=== PATIENT | male | born 1980 | race Caucasian/White ===

== ENCOUNTER 2023-09-24 15:43 | Outpatient (AMB) | payer OTHER, SELFPAY ==
[2023-09-24 15:45] VITALS: BP 138/84; PULSE 74; O2SAT 98; BMI 26.5
--- NOTE | 2023-09-24 15:45 | A.OFFPC_ITS ---
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 Will order labs. Due for colon screen, will refer to GI. Pt's PHQ-9 was positive. He is interested in seeing a therapist, will have team reach out to pt. Denies any SI and HI. PFSH Family History Other Mental health problem Substance abuse Social History Patient Tobacco Use Status: Current everyday Tobacco user Cigarettes Per Day: 5 Current occupational status: employed Cognitive needs: No Hearing needs: No Vision needs: No Questionnaire PHQ-9 Over the last 2 weeks, how often have you been bothered by any of the following problems? 1. Little interest or pleasure in doing things: more than half the days 2. Feeling down, depressed, or hopeless: several days 3. Trouble falling or staying asleep, or sleeping too much: several days 4. Feeling tired or having little energy: nearly every day 5. Poor appetite or overeating: more than half the days 6. Feeling bad about yourself - or that you are a failure or have let yourself or your family down: not at all 7. Trouble concentrating on things, such as reading the newspaper or watching television: not at all 8. Moving or speaking so slowly that other people could have noticed. Or the opposite - being so fidgety or restless that you have been moving around a lot more than usual: several days 9. Thoughts that you would be better off or of hurting yourself in some way : not at all Total score: 10 Depression Screening Interpretation: Positive (will have fredi contact the pt, denies any si or hi) Depression Screening Done: Yes 00636 - PHQ-9 Billing: Yes Source: Developed by Drs. Kavon Buck, Amparo Lopez, Sourav Mead and colleagues, with an educational heriberto from [employer]. Thrive Questionnaire Date Thrive assessed: 09/24/23 I am a: Patient What is your living situation today?: I have a steady place to live Within the past 12 months, did the food you bought not last and you didn't have the money to get more?: Never true Within the past 12 months, did you worry whether your food would run out before you got money to buy more?: Never true Do you have trouble paying for medicines?: No Do you have trouble getting transportation to medical appointments?: No Do you have trouble paying your heating and electricity bill?: No Do you have trouble taking care of your child, family member or friend?: No Do you have trouble with day-to-day activities such as bathing, preparing meals, shopping, managing finances, etc.?: No Are you currently unemployed and looking for a job?: No Are you interested in more education?: No Please select the resources that you would like help with: None Currently or been in a relationship where the following occur: no concerns reported THRIVE Score: 0 AUDIT C Alcohol Use Questionnaire (AUDIT-C) 1. How often do you have a drink containing alcohol?: Never Total Score: 0 BRANDON-7 AMB Questionnaire BRANDON-7 Date BRANDON - 7 assessed: 09/24/23 Feeling nervous, anxious, or on edge: 0 = Not at all Not being able to stop or control worryin = Not at all Worrying too much about different things: 0 = Not at all Trouble relaxin = Not at all Being so restless that it is hard to sit still: 0 = Not at all Becoming easily annoyed or irritable: 0 = Not at all Feeling afraid as if something awful might happen: 0 = Not at all Total BRANDON-7 score (0-4 normal; 5-9 mild; 10-14 moderate; 15-21 severe): 0 Source: Developed by Drs. Kavon Buck, Amparo Lopez, Sourav Mead and colleagues, with an educational heriberto from [employer]. BRANDON-7 Assessment Billing BRANDON-7 Assessment Tool: BRANDON-7 Assessment 24839 (denies any si or hi, ferdi() will reach out) Review of Systems Const Denies chills and Denies fever(s) Eyes Denies blurry vision ENT Denies vertigo, Denies dizziness and Denies sore throat Card Denies chest pain at rest, Denies chest pain with activity, Denies diaphoresis, Denies dyspnea and Denies dyspnea on exertion Resp Denies cough, Denies dyspnea, Denies dyspnea on exertion and Denies wheezing GI Denies abdominal pain, Denies melena, Denies hematochezia, Denies constipation, Denies diarrhea and Denies loose stools Denies hematuria Musc Denies numbness and Denies tingling Skin/Breast Denies lesions Neuro Denies vertigo, Denies dizziness, Denies numbness and Denies tingling Psych Denies anxiety, Denies depression, Denies homicidal ideation, Denies suicidal ideation and Denies other (substance abuse) Aller/Immun Denies wheezing Physical exam (Primary Care) Vital Signs: Last Vital Signs Pulse 74 09/24/23 15:45 BP 138/84 09/24/23 15:45 Pulse Ox 98 09/24/23 15:45 Oxygen Delivery Method Room Air 09/24/23 15:45 BMI result Body Mass Index 26.5 Tobacco/Smoking Status: Tobacco use Status Tobacco use date assessed 09/24/23 09/24/23 15:47 Patient Tobacco Use Status Current everyday Tobacco 09/24/23 16:14 PHQ-9: PHQ-9 Score PHQ-9: Total score 10 09/24/23 16:36 Depression Screening Interpretation: Positive (will have fredi contact the pt, denies any si or hi) Thrive Assessment: Date of Thrive Assessment Date Thrive assessed 09/24/23 09/24/23 15:47 Currently or been in a relationship where the following occur: no concerns reported Const General: cooperative Nutritional Appearance: well nourished Orientation/consciousness: patient oriented x3 HENMT Head: Yes normal to inspection, Yes normocephalic and Yes atraumatic Ears: TM's normal bilaterally Eyes General: appearance normal, both eyes and all related structures Alignment and Position: alignment normal and position normal Neck Neck: Yes normal visual inspection and Yes no lymphadenopathy Thyroid: Thyroid normal Resp Effort & Inspection: normal respiratory effort Auscultation: clear to auscultation bilaterally Cardio Rate: regular rate Rhythm: regular rhythm Heart sounds: S1 normal heart sound present, S2 normal heart sound present and no murmurs GI Palpation (GI): Soft to palpation and nontender Auscultation: normal bowel sounds Male General Exam: Yes normal external exam Penis: normal penis Scrotum: scrotum normal, testes descended bilaterally and no inguinal hernias Testes: no testicular mass Skin Other: left forehead with slightly fluctuant lesion, ? cystic vs lipoma Rashes: no rashes Neuro General: patient oriented x3, moves all extremities, no focal motor deficits and deep tendon reflexes 2+ bilaterally Romberg Test: Negative Psych Appearance: grossly normal Mental Status: mental status grossly normal Speech and movement: Normal speech and movement present Affect: normal affect Attitude: cooperative Thought process: Normal thought process present Thought content: Normal thought content present Insight: Good insight present (Psych) Judgement: Good judgement present (Psych) Assessment and Plan Assessment & Plan (1) Physical exam: Code(s): Z00.00 - Encounter for general adult medical examination without abnormal findings (2) Screening for colon cancer: Code(s): Z12.11 - Encounter for screening for malignant neoplasm of colon (3) Screening for prostate cancer: Code(s): Z12.5 - Encounter for screening for malignant neoplasm of prostate Plan The patient agreed to the use of a emergency medical technician for this encounter. Scribed for RUPA Garcia-BC by Lisa Lorenzo emergency medical technician, on 09/24/2023 at 16:25 EST. Orders: Orders UA CC w/rflx Micro + Cult Today Z00.00 - Encounter for general adult medical examination without abnormal findings Lipid Panel Today Z00.00 - Encounter for general adult medical examination without abnormal findings Complete Blood Count Auto Diff Today Z00.00 - Encounter for general adult medical examination without abnormal findings Comprehensive [place]. Panel Fast Today Z00.00 - Encounter for general adult medical examination without abnormal findings TSH reflex Free T4 Today Z00.00 - Encounter for general adult medical examination without abnormal findings Prostate Specific Antigen Scr Today Z12.5 - Encounter for screening for malignant neoplasm of prostate Referrals Gastroenterology Referral Z12.11 - Encounter for screening for malignant neoplasm of colon Coding Level of Care Code New Pt Prev Care 40-64y(78167) Diagnoses Physical exam Z00.00 Screening for colon cancer Z12.11 Screening for prostate cancer Z12.5 Additional Codes BRANDON-7 Assessment Billing - BRANDON-7 Assessment Tool: BRANDON-7 Assessment 10812 ([id number])
== END 2023-09-24 16:46 | disposition home or self-care (01) ==
PROVIDERS: PCP Nurse Practitioner Family; Visit Provider Nurse Practitioner Family
DX: Z00.00 Encounter for general adult medical examination without abnormal findings (principal); Z12.11 Encounter for screening for malignant neoplasm of colon; Z12.5 Encounter for screening for malignant neoplasm of prostate
CPT/HCPCS: 99386

== ENCOUNTER → 2024-08-05 11:19 | Outpatient (BNVA) | payer OTHER, SELFPAY | PROVIDERS: PCP Nurse Practitioner Family; Visit Provider Nurse Practitioner Family | DX: Z13.89 Encounter for screening for other disorder (principal) ==

== ENCOUNTER 2024-09-22 11:53 | Outpatient (REF) | payer OTHER, SELFPAY ==
[2024-09-22 13:29] LABS: MANUAL DIFF FLAG NO
[2024-09-22 13:34] LABS: Basophils Percent Auto 0.3 % (0-2); Eosinophils Absolute Auto 0.1 X10*3/uL (0.0-0.4); Eosinophils Percent Auto 0.3 % (0-4); Hematocrit 50.5 % (42.0-52.0); Imm Gran Abs Auto 0.06 X10*3/uL (0.00-0.03); Imm Gran Pct Auto 0.4 % (0.0-0.4); Lymphocytes Percent Auto 13.7 % (20-40); Mean Corpuscular HGB Conc 33.7 g/dl (31.0-36.0); Mean Corpuscular Hemoglobin 30.2 pg (27.0-33.0); Mean Corpuscular Volume 89.9 fL (80.0-98.0); Mean Platelet Volume 8.8 fL (9.4-12.4); Monocytes Absolute Auto 0.7 X10*3/uL (0.1-1.2); Monocytes Percent Auto 5.1 % (2-11); Neutrophils Absolute Auto 11.5 x10*3/uL (2.0-8.3); Neutrophils Percent Auto 80.2 % (45-73); Platelet Count 390 X10*3/uL (160-400); Red Blood Count 5.62 X10*6/uL (4.60-5.80); Red Cell Distribution Width 12.3 % (11.0-16.0); White Blood Count 14.4 X10*3/uL (4.8-10.8)
[2024-09-22 14:08] LABS: Appearance Urine Clear; Color Urine Dark Yellow; Glucose Urine UA Negative (Negative); Leukocyte Esterase Urine Negative (Negative); Nitrite Urine Negative (Negative); PH 5.5 (5.0-9.0); Specific Gravity - Urine >= 1.030 (1.005-1.025); Urine Blood Negative (Negative); Urine Ketones 15 mg/dL (Negative); Urine Protein Trace mg/dL (Neg-Trace)
[2024-09-22 14:15] LABS: Prostate Specific Antigen Scr 0.53 ng/mL (<0.05-4.0)
[2024-09-22 14:19] LABS: Alanine Aminotransferase 29 U/L (0-40); Albumin Level 4.7 g/dL (3.5-5.0); Alkaline Phosphatase 46 U/L (39-117); Anion Gap 15 (12-20); Aspartate Amino Transferase 26 U/L (5-37); Bilirubin Total 0.4 mg/dL (0.0-1.0); Blood Urea Nitrogen 14 mg/dL (9-16); Calcium 9.4 mg/dL (8.4-10.2); Carbon Dioxide 27 mmol/L (22-29); Chloride 102 mmol/L (96-108); Cholesterol 261 mg/dL (<200); Estimated Glomerular Filt Rate > 60; Glucose Fasting 111 mg/dL (60-99); HDL Cholesterol 49 mg/dL (>40); LDL Cholesterol Calculated 180 mg/dL (<100); Potassium 3.9 mmol/L (3.3-5.1); Sodium 140 mmol/L (135-145); TSH reflex Free T4 1.73 uIU/mL (0.32-4.0); Total Protein 7.9 g/dL (6.5-8.0); Triglycerides 160 mg/dL (<150)
== END 2024-09-22 11:54 | disposition home or self-care (01) ==
LOC: HO.HMGCLDS 11:53
PROVIDERS: PCP Nurse Practitioner Family; Visit Provider Nurse Practitioner Family
DX: Z00.00 Encounter for general adult medical examination without abnormal findings (principal); Z12.5 Encounter for screening for malignant neoplasm of prostate
CPT/HCPCS: 36415; 80053; 80061; 81003; 84153; 84443; 85025

== ENCOUNTER 2024-10-26 14:52 | Outpatient (AMB) | payer OTHER, SELFPAY ==
[2024-10-26 14:56] VITALS: BP 110/74; PULSE 70; TEMP 36.7; O2SAT 98; BMI 27.7
--- NOTE | 2024-10-26 14:56 | MHC.PC.OV ---
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 Allergies No Known Allergies Allergy (Verified 10/26/24 15:14) Medication List - Last Reconciled 10/26/24 by RUPA Jamison- atorvastatin 20 mg PO BEDTIME escitalopram oxalate 10 mg PO DAILY methadone 130 mg PO DAILY Tobacco use date assessed: 10/26/24 Dental Screening Dental Screen Date: 10/26/24 Did you have a dental visit in the last 12 months?: Yes Did you have a dental problem in the last 6 months where you did not have access to dental care?: No Was dental information given to patient?: Patient has dentist HPI PE HPI Details History of Present Illness The patient is a 44-year-old male presenting with concerns of chest pain, dyspnea, fever, and abdominal pain. He reports experiencing chest pain and shortness of breath, accompanied by fever and chills. Additionally, he has been experiencing abdominal pain, constipation, and diarrhea. The patient also reports lesions on his back, which have been identified as herpes zoster (shingles). The lesions are vesicular and located on the left thoracic back, extending to the mid axillary area, with some scabbing noted. He was previously referred for a colonoscopy last year and will be re-referred for colon cancer screening. Health Maintenance - Colon cancer screening referral for colonoscopy Social History Review of Systems - Cardiovascular: Reports chest pain - Respiratory: Reports dyspnea - General: Reports fever and chills - Gastrointestinal: Reports abdominal pain, constipation, and diarrhea Physical Exam General: Cooperative, healthy appearing, comfortable, no acute distress and well developed Orientation: Patient oriented x3 Limitations: No limitations Head: Normal to inspection Ears: Hearing grossly normal bilaterally Nose: Normal external nose present Face and sinus: Normal facial exam Eyes: Appearance normal, both eyes and all related structures Neck: Normal visual inspection and Yes full ROM Respiratory: Normal respiratory effort and able to speak in complete sentences. Clear to auscultation bilaterally Cardiovascular: Regular rate and rhythm. Normal S1 and S2 GI: Normal to inspection. Soft to palpation and nontender : testicles without masses/lesions and no hernias appreciated Skin: Vesicular lesions noted on the left thoracic back, mid back, and to the mid axillary area along same dermatome. Some scabbing on the thoracic back region patch. cystic lesion to left forehead Neuro: Patient oriented x3 Extremities: Normal to inspection Results Plan The patient will be re-referred for a colonoscopy to screen for colon cancer, as he was previously referred last year but has not yet undergone the procedure. The vesicular lesions on the patient's back, identified as herpes zoster, will be monitored, and appropriate antiviral treatment may be considered if symptoms persist or worsen. Patient was informed and verbally consented to the use of an ambient scribe for clinic note documentation during this visit. Discussion Notes I discussed with the patient the importance of undergoing a colonoscopy for colon cancer screening, given his previous referral. We also reviewed the presentation of his shingles and the potential need for antiviral therapy if the condition does not improve. Patient Instructions - Schedule a colonoscopy for colon cancer screening. - Monitor the lesions on your back and seek medical attention if they worsen. [facility] Surgical History No pertinent past surgical history Family History Other Mental health problem Substance abuse Social History Patient Tobacco Use Status: Current everyday Tobacco user Cigarettes Per Day: 5 Current occupational status: employed Cognitive needs: No Hearing needs: No Vision needs: No Questionnaire PHQ-9 Over the last 2 weeks, how often have you been bothered by any of the following problems? 1. Little interest or pleasure in doing things: more than half the days 2. Feeling down, depressed, or hopeless: several days 3. Trouble falling or staying asleep, or sleeping too much: several days 4. Feeling tired or having little energy: nearly every day 5. Poor appetite or overeating: more than half the days 6. Feeling bad about yourself - or that you are a failure or have let yourself or your family down: not at all 7. Trouble concentrating on things, such as reading the newspaper or watching television: not at all 8. Moving or speaking so slowly that other people could have noticed. Or the opposite - being so fidgety or restless that you have been moving around a lot more than usual: several days 9. Thoughts that you would be better off or of hurting yourself in some way: not at all Total score: 10 Depression Screening Interpretation: Positive ( denies any si or hi, has a therapist) Depression Screening Follow-up: Existing condition Depression Screening Done: Yes 35807 - PHQ-9 Billing: Yes Source: Developed by Drs. Kavon Buck, Amparo Lopez, Sourav Mead and colleagues, with an educational heriberto from [employer]. Thrive Questionnaire Date Thrive assessed: 10/26/24 I am a: Patient What is your living situation today?: I have a steady place to live Within the past 12 months, did the food you bought not last and you didn't have the money to get more?: I choose not to answer this question Within the past 12 months, did you worry whether your food would run out before you got money to buy more?: I choose not to answer this question Do you have trouble paying for medicines?: I choose not to answer this question Do you have trouble getting transportation to medical appointments?: No Do you have trouble paying your heating and electricity bill?: No Do you have trouble taking care of your child, family member or friend?: No Do you have trouble with day-to-day activities such as bathing, preparing meals, shopping, managing finances, etc.?: No Are you currently unemployed and looking for a job?: No Are you interested in more education?: No Please select the resources that you would like help with: None Currently or been in a relationship where the following occur: I choose not to answer THRIVE Score: 0 AUDIT C Alcohol Use Questionnaire (AUDIT-C) 1. How often do you have a drink containing alcohol?: Never 3. How often do you have six or more drinks on one occasion?: Never Total Score: 0 Score Reviewed/Action Taken: Yes BRANDON-7 AMB Questionnaire BRANDON-7 Date BRANDON - 7 assessed: 10/26/24 Feeling nervous, anxious, or on edge: 0 = Not at all Not being able to stop or control worryin = Not at all Worrying too much about different things: 0 = Not at all Trouble relaxin = Not at all Being so restless that it is hard to sit still: 0 = Not at all Becoming easily annoyed or irritable: 0 = Not at all Feeling afraid as if something awful might happen: 0 = Not at all Total BRANDON-7 score (0-4 normal; 5-9 mild; 10-14 moderate; 15-21 severe): 0 Source: Developed by Drs. Kavon Buck, Amparo Lopez, Sourav Mead and colleagues, with an educational heriberto from [employer]. BRANDON-7 Assessment Billing BRANDON-7 Assessment Tool: BRANDON-7 Assessment 98629 (denies any si or hi, fredi() will reach out) Physical exam (Primary Care) Vital Signs: Last Vital Signs Temp 98.0 F 10/26/24 14:56 Pulse 70 10/26/24 14:56 BP 110/74 10/26/24 14:56 Pulse Ox 98 10/26/24 14:56 BMI result Body Mass Index 27.7 Tobacco/Smoking Status: Tobacco use Status Tobacco use date assessed 10/26/24 10/26/24 14:59 Patient Tobacco Use Status Current everyday Tobacco 10/26/24 14:59 PHQ-9: PHQ-9 Score PHQ-9: Total score 10 10/26/24 14:59 Depression Screening Interpretation: Positive ( denies any si or hi, has a therapist) Depression Screening Follow-up: Existing condition Thrive Assessment: Date of Thrive Assessment Date Thrive assessed 10/26/24 10/26/24 14:59 Currently or been in a relationship where the following occur: I choose not to answer Coding Level of Care Code Est Pt Level 3 (98121) Est Pt Prev Care 40-64y(42806) Diagnoses Physical exam Z00.00 Screening for colon cancer Z12.11 Shingles B02.9 Additional Codes BRANDON-7 Assessment Billing - BRANDON-7 Assessment Tool: BRANDON-7 Assessment 68792 ([id number]) PHQ-9 - 94617 - PHQ-9 Billing: Yes ([id number]) Assessment & Plan Assessment & Plan (1) Physical exam: Code(s): Z00.00 - Encounter for general adult medical examination without abnormal findings Category: Medical (2) Screening for colon cancer: Code(s): Z12.11 - Encounter for screening for malignant neoplasm of colon Category: Medical (3) Shingles: Code(s): B02.9 - Zoster without complications Category: Medical Plan . Orders: Orders UA CC w/rflx Micro + Cult Today Z00.00 - Encounter for general adult medical examination without abnormal findings Lipid Panel Today Z00.00 - Encounter for general adult medical examination without abnormal findings Complete Blood Count Auto Diff Today Z00.00 - Encounter for general adult medical examination without abnormal findings Comprehensive [place]. Panel Fast Today Z00.00 - Encounter for general adult medical examination without abnormal findings TSH reflex Free T4 Today Z00.00 - Encounter for general adult medical examination without abnormal findings Prostate Specific Antigen Scr Today B02.9 - Zoster without complications, Z00.00 - Encounter for general adult medical examination without abnormal findings Referrals Gastroenterology Referral Z12.11 - Encounter for screening for malignant neoplasm of colon Medications: New valacyclovir 1,000 mg PO Q8H 21 tabs 0RF 7 days prednisone 50 mg PO DAILY 6 tabs 0RF 6 days
== END 2024-10-26 15:22 | disposition home or self-care (01) ==
LOC: HO.HMCC 14:52
PROVIDERS: PCP Nurse Practitioner Family; Visit Provider Nurse Practitioner Family
DX: Z00.00 Encounter for general adult medical examination without abnormal findings (principal); B02.9 Zoster without complications; Z12.11 Encounter for screening for malignant neoplasm of colon

== ENCOUNTER → 2024-10-26 14:52 | Outpatient (BNVA) | payer OTHER, SELFPAY | PROVIDERS: PCP Nurse Practitioner Family; Visit Provider Nurse Practitioner Family | DX: Z00.00 Encounter for general adult medical examination without abnormal findings (principal); B02.9 Zoster without complications; R07.9 Chest pain, unspecified; R10.9 Unspecified abdominal pain; R06.00 Dyspnea, unspecified | CPT/HCPCS: 96127; 99212; 99396 ==

== ENCOUNTER 2025-02-03 12:08 | Outpatient (AMB) | payer OTHER, SELFPAY ==
[2025-02-03 12:12] VITALS: BP 128/84; PULSE 94; O2SAT 96; BMI 26.9
--- NOTE | 2025-02-03 12:12 | MHC.OFFVIS ---
Vital Signs 02/03/25 12:12 Height 6 ft 1 in Weight 204 lb BMI 26.9 BP 128/84 Blood Pressure Location Lt brachial Position Sitting Pulse 94 Pulse Source Pulse Oximeter Pulse Oximetry (%) 96 Oxygen Delivery Method Room Air Intake Visit Reasons: [place] screening Intake Note: Patient new consult for pre Colonoscopy screening. Patient cc: Pt denies any GI sx or concerns at this time. No pertinent surgical or FMHx. Concrete Vault [employer] Required: No Accompanied by: Self / Same As Patient Allergies No Known Allergies Allergy (Verified 02/03/25 12:13) Medication List - Last Reconciled 02/03/25 by Amy Carpenter CNP atorvastatin 20 mg PO BEDTIME escitalopram oxalate 10 mg PO DAILY methadone 130 mg PO DAILY HPI HPI [place] screening: Details: Patient is a 45-year-old male with PMH of hypertension, depression and substance use disorder. Referred by PCP for pre colonoscopy screening. Mehran reports daily bowel movements without current constipation?previous opioid-induced constipation managed successfully with dietary modifications. Appetite remains good, with a weight reduction of six pounds since October attributed to increased physical activity and dietary changes. Reports episodic mild indigestion and mild dysphagia to solids at the start of meals, ongoing for the past two months without progression. Occasional nausea and rare vomiting (annual), felt to be related to medication use or isolated illness, without persistent pattern. No heartburn. Relevant comorbidities include hyperlipidemia, anxiety/depression (on atorvastatin, escitalopram), and opioid dependence managed with methadone, which previously contributed to constipation. History of treated shingles (valacyclovir, now resolved). No concerning family or personal history of GI malignancy. Patient denies: fever/chills, n/v, appetite changes, pyrosis, regurgitation, unintentional wt loss, ab pain or melena/hematochezia. Social hx: -denies ETOH use -Daily marijuana (edibles, with medical card), history of IV heroin and prescription opioid use (now on methadone). Denies other recreational drug use -Former heavy smoker, currently 5-6 cigarettes/day, actively reducing. - family hx as below -denies personal hx of CA -denies significant cardiopulmonary history -tolerated anesthesia in the past without difficulty. PFSH Medical History (Updated 02/03/25 @ 13:07 by Amy Carpenter CNP) Constipation Dysphagia Surgical History No pertinent past surgical history Family History Other Mental health problem Substance abuse Social History Patient Tobacco Use Status: Current everyday Tobacco user Cigarettes Per Day: 5 Current occupational status: employed Cognitive needs: No Hearing needs: No Vision needs: No Review of Systems Const Reports as per HPI ENT Reports as per HPI Card Reports as per HPI Resp Reports as per HPI GI Reports as per HPI Reports as per HPI Physical Exam Vital Signs: Last Vital Signs Pulse 94 02/03/25 12:12 BP 128/84 02/03/25 12:12 Pulse Ox 96 02/03/25 12:12 Oxygen Delivery Method Room Air 02/03/25 12:12 BMI result Body Mass Index 26.9 Const General: healthy appearing, no acute distress and well developed Nutritional Appearance: average body habitus Orientation/consciousness: patient oriented x3 HEENT Head: Yes normal to inspection, Yes normocephalic and Yes atraumatic Face and sinus: Yes normal facial exam Eyes General: appearance normal, both eyes and all related structures Neck Neck: Yes normal visual inspection Resp Effort & Inspection: normal respiratory effort, able to speak in complete sentences, no tracheal deviation and symmetric chest movement Cardio Jugular venous distension: no JVD GI Auscultation: normal bowel sounds Neuro General: patient oriented x3 Gait exam (Neuro): Normal gait present Psych Appearance: grossly normal Mental Status: mental status grossly normal Speech and movement: Normal speech and movement present Affect: normal affect Attitude: cooperative Thought process: Normal thought process present Thought content: Normal thought content present Insight: Good insight present (Psych) Judgement: Good judgement present (Psych) Assessment & Plan Assessment & Plan (1) Screening for colon cancer: Code(s): Z12.11 - Encounter for screening for malignant neoplasm of colon Category: Medical Plan: First screening colonoscopy, no red flag symptoms. Medications: -prescriptions for laxative tablets and MiraLax sent to pharmacy; instructions for Gatorade purchase and clear liquid diet given. Patient educated on scheduling process, procedure preparation, including avoiding certain foods and ensuring clear liquid intake Advised on necessity for ride post-procedure due to sedation. (2) Dysphagia: Code(s): R13.10 - Dysphagia, unspecified Category: Medical Qualifiers: Dysphagia type: unspecified Qualified Code(s): R13.10 - Dysphagia, unspecified Plan: Mild symptoms, non-progressive, no alarm symptoms. However, given new onset and prior opioid use recommend completing EGD. Additional Testing: -EGD to complete concurrent at time of colonoscopy. Portal message sent with recommendation. Medication Management: None at present. Lifestyle Recommendations: Monitor symptoms, avoid triggers; report if worsens. Follow-Up: As needed. (3) Constipation: Code(s): K59.00 - Constipation, unspecified Category: Medical Qualifiers: Constipation type: drug induced constipation Qualified Code(s): K59.03 - Drug induced constipation Plan: Historical based on methadone use, resolved with diet; future risk persists. Additional Testing: None unless symptoms recur. Medication Management: PRN osmotic laxatives (e.g., Miralax) if constipation returns. Lifestyle Recommendations: Continue high-fiber diet, hydration, physical activity. Follow-Up: PRN for recurrence. Plan Follow-up after endoscopy as warranted or sooner if needed Time: I spent a total of 20 minutes on the date of encounter which includes: Preparing to see the patient (reviewed previous documentation, test results and medical history) Performing a medically appropriate exam and/or evaluation Ordering medications, tests, and procedures Documenting clinical information in the health record Orders: Referrals GI Procedure Notification R13.10 - Dysphagia, unspecified, Z12.11 - Encounter for screening for malignant neoplasm of colon Medications: New bisacodyl Take per colonoscopy instructions 5 mg PO ONCE 4 tabs 0RF polyethylene glycol 3350 (Miralax) per colonoscopy prep instructions 238 grams PO ONCE 238 grams 0RF Coding Level of Care Code New Pt Est Pt Level 3 (12993) Patient Type New Diagnoses Screening for colon cancer Z12.11 Dysphagia, unspecified type R13.10 Dysphagia type: unspecified Drug-induced constipation K59.03 Constipation type: drug induced constipation
== END 2025-02-03 13:07 | disposition home or self-care (01) ==
LOC: HO.HGI 12:09
PROVIDERS: PCP Nurse Practitioner Family; Visit Provider Nurse Practitioner Family
DX: Z01.818 Encounter for other preprocedural examination (principal); Z12.11 Encounter for screening for malignant neoplasm of colon; R13.10 Dysphagia, unspecified; K59.03 Drug induced constipation
CPT/HCPCS: 99213

== ENCOUNTER → 2025-02-03 12:08 | Outpatient (BNVA) | payer OTHER, SELFPAY | PROVIDERS: PCP Nurse Practitioner Family; Visit Provider Nurse Practitioner Family | DX: Z12.11 Encounter for screening for malignant neoplasm of colon (principal); R13.10 Dysphagia, unspecified; K59.03 Drug induced constipation | CPT/HCPCS: 99212 ==

== ENCOUNTER 2025-04-14 08:28 | Day surgery (SDC) | payer OTHER, SELFPAY ==
--- NOTE | 2025-04-11 13:36 | HO.ANESPROP2 ---
Documented by User: Kitty Mary NP 04/11/25 13:37 HPI - Anesthesia Eval Consult details Narrative: 45 yr old male for upper endoscopy, colonoscopy H/O substance use: ?on methadone; no further info available [facility] Active Problems Active Problems: All Active Problems (Updated 02/03/25 @ 13:07 by Amy Carpenter CNP) Constipation (Acute) Dysphagia (Acute) Shingles (Acute) Leukocytosis (Acute) Dyslipidemia (Acute) Heroin use (Acute) Methadone use (Acute) Screening for prostate cancer (Acute) Screening for colon cancer (Acute) Physical exam (Acute) Past Medical History Medical History Constipation Dysphagia Family History Family History Other Mental health problem Substance abuse Surgical History Surgical History No pertinent past surgical history Social History Social History Patient Tobacco Use Status: Current everyday Tobacco user Tobacco use type: Cigarette Cigarette Packs Per Day: 0.5 Cigarettes Per Day: 10.0 Current occupational status: employed Cognitive needs: No Hearing needs: No Vision needs: No Meds Allergies Allergy/AdvReac Type Severity Reaction Status Date / Time No Known Allergies Allergy Verified 04/14/25 08:44 Home Medications ?Medication ?Instructions ?Recorded ?Confirmed ?Last Taken ?Type methadone 10 mg/mL oral concentrate 130 mg PO DAILY 09/24/23 02/03/25 Unknown History escitalopram oxalate 10 mg tablet 10 mg PO DAILY 10/26/24 04/12/25 Unknown History Documented by User: Ani St MD 04/14/25 09:39 [facility] Past Medical History Medical History Constipation Dysphagia Family History Family History Other Mental health problem Substance abuse Family history of problems with anesthesia: No Surgical History Surgical History No pertinent past surgical history History of Problems with Anesthesia: No Social History Social History Patient Tobacco Use Status: Current everyday Tobacco user Tobacco use type: Cigarette Cigarette Packs Per Day: 0.5 Cigarettes Per Day: 10.0 Current occupational status: employed Cognitive needs: No Hearing needs: No Vision needs: No Meds Allergies Allergy/AdvReac Type Severity Reaction Status Date / Time No Known Allergies Allergy Verified 04/14/25 08:44 Home Medications ?Medication ?Instructions ?Recorded ?Confirmed ?Last Taken ?Type methadone 10 mg/mL oral concentrate 130 mg PO DAILY 09/24/23 02/03/25 Unknown History escitalopram oxalate 10 mg tablet 10 mg PO DAILY 10/26/24 04/12/25 Unknown History Exam Airway Mallampati Class: II TM Dist: >3cm Neck ROM: Full Heart: rrr Lungs: cta Assessment and Plan Assessment Anesthesia Assessment: Anesthesia Plan Discussed and Chart Reviewed Final Anesthetic Review Family History of Problems with Anesthesia: No History of Problems with Anesthesia: No NPO: Yes ASA Class: III Final Preanesthetic Review: No Changes in Pt Med Stat, Meds/Allgs Chart Reviewed, Consent Obtained/Reviewed and Anes Risks/Benef Reviewed Patient Risk: Intermediate Procedure Risk: Low Anesthetic Plan Anesthetic Plan: MAC: and Agree w/ Assess. and Plan Disposition: Standard PACU
[2025-04-14 08:48] VITALS: BMI 26.9
--- NOTE | 2025-04-14 08:53 | MHC.SHP ---
Pre-Procedural Eval Section A - 24 Hr Update-Section A only Date of Service: 04/14/25 Section B - Complete if H&P > 30 days Chief Complaint: screening,dysphagia Details of Present Illness: Constipation Dysphagia Surgical History No pertinent past surgical history Present Medications: see Short Stay Collaborative assessment Allergies: Allergies Allergy/AdvReac Type Severity Reaction Status Date / Time No Known Allergies Allergy Verified 04/14/25 08:44 Review of Systems Review of Systems Comment: Ten point ROS negative Exam Exam Comment: Gen appear: No acute distress HEENT: no icterus Chest: No overt resp distress Abd: soft, nontender, nondistended Psych: Stable affect, answering questions appropriately Neuro: A/Ox3 noted to move all extremities spontaneously Ext: no peripheral edema Plan Diagnosis/Plan: Unchanged I have reviewed the history and physical and performed a pertinent physical examination on my patient. No changes have occurred unless specified. Time Spent With Patient Time: Total time managing care of this patient today ____ minutes.
[2025-04-14 08:55] VITALS: BP 135/81; PULSE 96; RESP 13; TEMP 36.2; O2SAT 97
[2025-04-14] MEDS: Lactated Ringers 1,000 ML 100 ML IVCONT (09:03)
[2025-04-14] MEDS: Albuterol Sulfate 90 MCG 8 GM INHALER 2 PUFF INHALE (09:08)
[2025-04-14 09:09] LABS: Cannabinoid Screen Urine POSITIVE (Not Detect)
[2025-04-14 10:08] VITALS: BP 90/58; PULSE 80; RESP 12; TEMP 36.6; O2SAT 95
--- NOTE | 2025-04-14 10:14 | P.OPN-COLO_ITS ---
Colonoscopy Operative Note Operative Note Date of Service: 04/14/25 Narrative: Procedure: Upper endoscopy and colonoscopy Indication: Dysphagia, screening Endoscopist: Nga Roldan MD Anesthesia Provider: Jose Salinas CRNA Anesthesia type: MAC Instrument: [id number] and [id number] EGD Procedure:?? The procedure, indications, preparation and potential complications were reviewed with the patient, who indicated understanding and gave written informed consent to proceed. The endoscope was introduced through the mouth, and advanced to the 2nd part of the duodenum. The mucosa was carefully examined on slow withdrawal of the endoscope. The patient tolerated the procedure well. There were no immediate complications.? EGD Findings:? * Esophagus:? Mild erythema and erosions measuring < 5mm noted at GE junction. The Z-line was at 40 cm. Cold forceps biopsies were taken from middle and lower esophagus to rule out eosinophilic esophagitis. * Stomach:? Normal gastric mucosa. Retroflexion was performed in the cardia. Random cold forceps biopsies were taken from the stomach. * Duodenum:? Erythema and edema in duodenal bulb. Cold forceps biopsies were taken from the duodenal bulb and 2nd portion of the duodenum to rule out celiac sprue. Additional intervention: Soft tip Savary wire was introduced through the biopsy channel of the gastroscope and advanced to the antrum. ?The gastroscope was then backed out. ?Savary Kings bougie was advanced over the guidewire and the esophagus was dilated to 18 mm with resistance felt. ?On relook, heme and superficial tear was noted at the level of cricopharyngeus confirming successful dilation. ? Colonoscopy Procedure:? The patient was then turned for the colonoscopy. A digital rectal exam was performed which was normal.? A distal attachment cap was affixed to the tip of the scope and the colonoscope was then inserted through the anus and advanced through the colon and advanced to the cecum at 75 cm and terminal ileum.? Appendiceal orifice and ileocecal valve were identified. Mucosa was carefully examined under high definition white light as the instrument was slowly withdrawn in a retrograde panoramic fashion. Retroflexion was performed in rectum. The procedure was not difficult. The quality of the prep was BBPS: 2+3+3 = adequate Withdrawal time 12 minutes Limitations: No limitations Findings: Mucosa: Erythema in the distal rectum between 5 and 10 cm from anal orifice. Cold forceps biopsies were taken to rule out proctitis. Remaining mucosa normal to cecum, and terminal ileum. Protruding lesions: * Large internal hemorrhoids without stigmata of recent bleeding. Excavated lesions: * Mild diverticulosis of sigmoid colon. Impression: 1. Grade A esophagitis (biopsy) 2. Cricopharyngeal stenosis (dilation) 3. Normal stomach (biopsy) 4. Duodenitis (biopsy) 5. Abnormal rectal mucosa 6. Diverticulosis 7. Internal hemorrhoids Recommendations:?? * Follow-up path results * Avoid NSAIDs and smoking * Start omeprazole 20 mg once daily * H Pylori treatment if biopsies + * Repeat colonoscopy for asymptomatic CRC screening in 10 years.
[2025-04-14 10:20] VITALS: BP 93/56; PULSE 69; RESP 12; TEMP 36.6; O2SAT 95
== END 2025-04-14 11:40 | disposition home or self-care (01) ==
PROVIDERS: Nurse Practitioner; PCP Nurse Practitioner Family; Visit Provider Internal Medicine
PROC: (CPT 45378; principal; 2025-04-14 10:00)
DX: Z12.11 Encounter for screening for malignant neoplasm of colon (principal); R13.10 Dysphagia, unspecified; K59.03 Drug induced constipation; K57.30 Diverticulosis of large intestine without perforation or abscess without bleeding; J38.6 Stenosis of larynx; K64.8 Other hemorrhoids; K20.90 Esophagitis, unspecified without bleeding
CPT/HCPCS: 45378; 43239; 43248; 80307; 88305; 88313; 88342; J2003; J2704

== ENCOUNTER → 2025-04-14 08:28 | Outpatient (BNV) | payer OTHER, SELFPAY | PROVIDERS: PCP Nurse Practitioner Family; Visit Provider Internal Medicine | DX: Z12.11 Encounter for screening for malignant neoplasm of colon (principal); K63.89 Other specified diseases of intestine; K57.30 Diverticulosis of large intestine without perforation or abscess without bleeding; K64.8 Other hemorrhoids; R13.10 Dysphagia, unspecified; J39.2 Other diseases of pharynx; K20.90 Esophagitis, unspecified without bleeding; K29.80 Duodenitis without bleeding | CPT/HCPCS: 43239; 43248; 45380 ==